=== PATIENT | female | born 1975 | race Caucasian/White ===

== ENCOUNTER 2023-03-01 17:05 | Emergency (ER) | payer OTHER, SELFPAY ==
[2023-03-01] VITALS (9 sets, daily range): BP systolic 138; BP diastolic 92; PULSE 86–98; RESP 13–20; TEMP 36.8; O2SAT 96; BMI 43.6
--- NOTE | 2023-03-01 17:15 | ECG_ITS ---
The [facility] Test Date: 2023-03-01 Pat Name: MARIO ALBERTO RODRIGUEZ Department: Room: - Gender: Female [employer] Driver: : 1975 Requested By: [id number] Order Number: [id number] Reading MD: ARY PULIDO Measurements Intervals [place] Rate: 86 P: 33 [place]: 156 QRS: 76 QRSD: 84 T: 71 QT: 390 QTc: 434 Interpretive Statements 1100 Sinus rhythm 9110 normal ECG No previous ECG available for comparison Electronically Signed On 03-02-2023 7:09:48 EDT by ARY PULIDO
--- NOTE | 2023-03-01 17:15 | XR_ITS ---
The [place] [id number] Patient Name: MARIO ALBERTO RODRIGUEZ MRN: [id number] date: 1975 Sex: F Assigned Patient Location: ER Current Patient Location: ER Accession/Order Number: [id number] Exam Date: 03/01/2023 17:50 Report Date: 03/01/2023 18:31 At the request of: KING BREWER Procedure: XR ribs RT min 3V w CXR1V Ribs EXAM: XR ribs RT min 3V w CXR1V HISTORY: pain COMPARISON: None. TECHNIQUE: Chest, single view. Right rib series with 7 images obtained. FINDINGS: Lungs/pleura: No consolidation, effusion, or pneumothorax. Bones: No acute abnormality identified. XR/XR ribs RT min 3V w CXR1V IMPRESSION: No acute displaced rib fracture. No acute process. Electronically authenticated by: JESÚS MOORE Date: 03/01/2023 18:31
--- NOTE | 2023-03-01 17:15 | US_ITS ---
The [address] [address] Patient Name: MARIO ALBERTO RODRIGUEZ MRN: [id number] date: 1975 Sex: F Assigned Patient Location: ER Current Patient Location: .MAIN Accession/Order Number: [id number] Exam Date: 03/01/2023 17:50 Report Date: 03/01/2023 19:21 At the request of: KING BREWER Procedure: US right upper quadrant EXAM: US right upper quadrant HISTORY: ruq pain COMPARISON: CTA chest 09/10/2022. TECHNIQUE: Transabdominal ultrasound was performed of the right upper quadrant. FINDINGS: The liver is diffusely increased in echogenicity consistent with fatty infiltration. This somewhat limits visualization. The liver is also enlarged with the right lobe measuring 20 cm in length. No definite focal lesions are seen. There is normal hepatopetal Doppler flow within the main portal vein. The pancreas is poorly visualized due to bowel gas. The common bile duct is normal diameter at 4.1 mm. The gallbladder is contracted with no definite gallstones visualized. The patient reportedly ate 2 hours prior to the study. There is no pericholecystic fluid. The sonographic Lauren sign is negative. The right kidney measures 10.4 x 5.3 x 4.9 cm and appears unremarkable. US/US right upper quadrant IMPRESSION: 1. The gallbladder is contracted, likely due to nonfasting state. No definite evidence of cholelithiasis or acute cholecystitis however is identified. 2. Fatty liver and hepatomegaly. Electronically authenticated by: TIMOTEO VAZQUEZ Date: 03/01/2023 19:21
--- NOTE | 2023-03-01 17:24 | ED.GENADUL1 ---
HPI - General Adult General Chief complaint: Chest Pain Stated complaint: Right Flank Pain Time Seen by Provider: 03/01/23 17:15 Source: patient Mode of arrival: walk-in Limitations: no limitations History of Present Illness HPI narrative: 47-year-old female who does smoke presents for right upper quadrant pain for the past 2 days. She states that she has a smoker's cough and last time this happened, she broke her rib from pleurisy. She states that she has been coughing more than normal and has not been sick. She has a history of drinking frequent alcohol on the weekends, but has not done this in the past month. Denies radiation of pain. Pain worse with moving around and coughing. Denies fever, back pain, dysuria, hematuria, urinary frequency, n/v/d, SOB or CP Related Data Previous Rx's Medication Instructions Recorded tizanidine 4 mg tablet (Zanaflex) 4 mg PO TID PRN muscle spasticity 03/01/23 5 days #15 tabs Allergies Allergy/AdvReac Type Severity Reaction Status Date / Time cephalexin [From Keflex] AdvReac Severe Diarrhea Verified 03/01/23 17:09 nalbuphine [From Nubain] AdvReac Severe NAUSEA Verified 03/01/23 17:09 AND VOMITING Review of Systems ROS Status of ROS 10 or more systems reviewed and unremarkable except as noted in history and below [facility] Social History Smoking status: Heavy tobacco smoker Exam Narrative Exam Narrative: General: alert, no distress, talking in full an complete sentences skin: warm, dry, intact head: normocephalic, atraumatic eyes: EOMI nose: nares patent neck: supple, trachea midline cardiac: +S1/S1. no murmur respiratory: lungs CTA, non-labored, no wheezing, no retractions abdomen: soft, ruq tenderness, no guarding, no rigidity, positive murphys sign, no peritonal signs, normal BS extremities: FROM x 4, strength +5/5 neuro: A&Ox3 psych: appropriate mood and affect, cooperative Constitutional Vital Signs, click to edit/add: Last Vital Signs Temp 98.3 F 03/01/23 17:09 Pulse 92 H 03/01/23 18:30 Resp 18 03/01/23 18:30 BP 138/92 H 03/01/23 17:09 Pulse Ox 96 03/01/23 17:09 O2 Del Method Room Air 03/01/23 17:09 Course Vital Signs Vital signs: Vital Signs Temperature 98.3 F 03/01/23 17:09 Pulse Rate 98 H 03/01/23 17:09 Respiratory Rate 20 03/01/23 17:09 Blood Pressure 138/92 H 03/01/23 17:09 Pulse Oximetry 96 03/01/23 17:09 Oxygen Delivery Method Room Air 03/01/23 17:09 Temperature 98.3 F 03/01/23 17:09 Pulse Rate 92 H 03/01/23 18:30 Respiratory Rate 18 03/01/23 18:30 Blood Pressure 138/92 H 03/01/23 17:09 Pulse Oximetry 96 03/01/23 17:09 Oxygen Delivery Method Room Air 03/01/23 17:09 Medical Decision Making MDM Narrative Medical decision making narrative: EKG sinus rhythm at a rate of 86. Medicated with Toradol. No significant lab normalities. No acute findings on final read of x-ray. Final read of ultrasound gallbladder no acute findings. This does show fatty liver and hepatomegaly. No acute findings on final read of CT abdomen pelvis. Likely muscular and she can use [id number] medications and follow-up with family doctor. She is given a dose of Norflex here and then a prescription for Zanaflex. Afebrile, not tachypneic, not tachycardic, tolerating p.o., not hypoxic, non toxic appearing and ambulating at baseline and hemodynamically stable to be d/c. answered all questions. educated on SE of meds. pt in agreement with tx. educated when to return to ER. Lab Data Lab results reviewed: Yes I reviewed the patient's lab results Labs: Lab Results 03/01/23 Range/Units 17:30 WBC 10.9 (4.0-11.0) 10^3/uL RBC 4.22 (4.20-5.40) 10^6/uL Hgb 12.6 (12.0-16.0) g/dL Hct 39.4 (36.0-48.0) % MCV 93.4 (81.0-99.0) fL MCH 29.9 (26.7-34.0) pg MCHC 32.0 (29.9-35.2) g/dL RDW 14.9 (11.0-15.0) % Plt Count 326 (150-450) 10^3/uL MPV 9.1 L (9.5-13.5) fL Neut % (Auto) 56.6 (43.0-75.0) % Lymph % (Auto) 33.9 (20.5-60.0) % Karnes % (Auto) 6.6 (1.7-12.0) % Eos % (Auto) 1.8 (0.9-7.0) % Baso % (Auto) 0.5 (0.2-2.0) % Neut # (Auto) 6.2 (1.4-6.5) 10^3/uL Lymph # (Auto) 3.7 (1.2-3.8) 10^3/uL Karnes # (Auto) 0.7 (0.3-0.8) 10^3/uL Eos # (Auto) 0.2 (0.0-0.7) 10^3/uL Baso # (Auto) 0.1 (0.0-0.1) 10^3/uL Abs Immat Gran (auto) 0.07 H (0.00-0.03) 10^3/uL Imm/Tot Granulo (auto) 0.6 H (0.0-0.5) % PT 9.4 (9.0-11.6) sec INR <0.93 Sodium 140 (136-145) mmol/L Potassium 3.9 (3.5-5.1) mmol/L Chloride 102 (98-107) mmol/L Carbon Dioxide 31.2 (21.0-32.0) mmol/L Anion Gap 10.7 BUN 16.0 (7.0-18.0) mg/dL Creatinine 0.94 (0.55-1.02) mg/dL Est GFR ( Amer) >60 (>=60) Est GFR (Non-Af Amer) >60 (>=60) BUN/Creatinine Ratio 17.0 Glucose 101 (74-106) mg/dL Calcium 9.3 (8.5-10.1) mg/dL Magnesium 2.1 (1.8-2.4) mg/dL Total Bilirubin 0.1 L (0.2-1.0) mg/dL Direct Bilirubin <0.1 (0.0-0.2) mg/dL AST 18 (15-37) U/L ALT 34 (14-59) U/L Alkaline Phosphatase 137 H (46-116) U/L Troponin I High Sens 8.2 (4.0-51.3) pg/mL NT-Pro-B Natriuret Pep 111.0 (<=450.0) pg/mL Total Protein 6.8 (6.4-8.2) g/dL Albumin 3.3 L (3.4-5.0) g/dL Globulin 3.5 g/dL Albumin/Globulin Ratio 0.9 Lipase 34.0 (16.0-77.0) U/L Imaging Data CT scan - abdomen: Attestation: I personally reviewed and interpreted this imaging study as follows: Radiologist's impression: CT/CT abdomen pelvis w con Impression: 1. No evidence of acute abdominal or pelvic process. 2. Diffuse fatty infiltration of the liver. 3. 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 No acute rib fractures are seen Discharge Plan Discharge Chief Complaint: Chest Pain Clinical Impression: Abdominal pain Qualifiers: Abdominal location: right upper quadrant Qualified Code(s): R10.11 - Right upper quadrant pain Abdominal muscle strain Qualifiers: Encounter type: initial encounter Qualified Code(s): S39.011A - Strain of muscle, fascia and tendon of abdomen, initial encounter Patient Disposition: Home, Self-Care Time of Disposition Decision: 20:16 Condition: Good Mode of Transportation: Private Vehicle Prescriptions / Home Meds: New tizanidine [Zanaflex] 4 mg tablet 4 mg PO TID PRN (Reason: muscle spasticity) 5 Days Qty: 15 0RF Instructions: Muscle Strain (ED), Abdominal Pain (ED) Stand Alone Forms: Portal Instructions Referrals: Physician,Non-Staff, MD [Primary Care Provider] - 1 week
[2023-03-01] MEDS: KETOROLAC TROMETHAMINE 30 MG/ML VIAL 15 MG IVP (17:33)
[2023-03-01 17:42] LABS: Basophils Absolute Auto 0.1 10^3/uL (0.0-0.1); Basophils Percent Auto 0.5 % (0.2-2.0); Eosinophils Absolute Auto 0.2 10^3/uL (0.0-0.7); Eosinophils Percent Auto 1.8 % (0.9-7.0); Hematocrit 39.4 % (36.0-48.0); Hemoglobin 12.6 g/dL (12.0-16.0); Immature Granulocytes Abs Auto 0.07 10^3/uL (0.00-0.03); Immature Granulocytes Pct Auto 0.6 % (0.0-0.5); Lymphocytes Absolute Auto 3.7 10^3/uL (1.2-3.8); Lymphocytes Percent Auto 33.9 % (20.5-60.0); Mean Corpuscular Hemoglobin 29.9 pg (26.7-34.0); Mean Corpuscular Volume 93.4 fL (81.0-99.0); Mean Platelet Volume 9.1 fL (9.5-13.5); Monocytes Absolute Auto 0.7 10^3/uL (0.3-0.8); Monocytes Percent Auto 6.6 % (1.7-12.0); Neutrophils Absolute Auto 6.2 10^3/uL (1.4-6.5); Neutrophils Percent Auto 56.6 % (43.0-75.0); Platelet Count 326 10^3/uL (150-450); Red Blood Count 4.22 10^6/uL (4.20-5.40); Red Cell Distribution Width 14.9 % (11.0-15.0); White Blood Count 10.9 10^3/uL (4.0-11.0)
[2023-03-01 17:57] LABS: Prothrombin Time 9.4 sec (9.0-11.6)
[2023-03-01 17:58] LABS: Alanine Aminotransferase 34 U/L (14-59); Albumin Globulin Ratio 0.9; Albumin Level 3.3 g/dL (3.4-5.0); Alkaline Phosphatase 137 U/L (46-116); Aspartate Amino Transferase 18 U/L (15-37); Bilirubin Direct <0.1 mg/dL (0.0-0.2); Bilirubin Total 0.1 mg/dL (0.2-1.0); Globulin 3.5 g/dL; Magnesium 2.1 mg/dL (1.8-2.4); Total Protein 6.8 g/dL (6.4-8.2)
[2023-03-01 18:01] LABS: INR <0.93
[2023-03-01 18:08] LABS: Anion Gap 10.7; Calcium 9.3 mg/dL (8.5-10.1); Carbon Dioxide 31.2 mmol/L (21.0-32.0); Chloride 102 mmol/L (98-107); Estimated GFR (African America >60 (>=60); Estimated GFR (Non-African Ame >60 (>=60); Glucose 101 mg/dL (74-106); Potassium 3.9 mmol/L (3.5-5.1); Sodium 140 mmol/L (136-145); Troponin I High Sensitivity 8.2 pg/mL (4.0-51.3)
--- NOTE | 2023-03-01 18:41 | CT_ITS ---
The [address] [address] Patient Name: MARIO ALBERTO RODRIGUEZ MRN: [id number] date: 1975 Sex: F Assigned Patient Location: ER Current Patient Location: Accession/Order Number: [id number] Exam Date: 03/01/2023 18:55 Report Date: 03/01/2023 20:01 At the request of: KING BREWER Procedure: CT abdomen pelvis w con Indication: Right upper quadrant pain Comparison: CT exam of the chest of 09/10/2022 was reviewed. Procedure: Axial images were made from the diaphragms through the symphysis pubis. No oral contrast was given prior to scanning. 100 mL Omnipaque 300 Intravenous contrast was given. Dose reduction techniques were achieved by using automated exposure control and/or adjustment of mA and/or kV according to patient size and/or use of iterative reconstruction technique. Findings: Liver/Biliary System: Diffuse fatty infiltration of the liver. No liver masses are seen. No intra or extrahepatic biliary dilatation. No gallstones or cholecystitis. Pancreas/Spleen: No evidence of acute pancreatitis. Pancreatic duct is not dilated. No pancreatic lesions are seen. No splenomegaly or splenic lesions. Kidneys/Adrenals: Normal symmetrical nephrograms. No renal masses. No renal or ureteral stones are seen. No hydronephrosis or hydroureter bilaterally. 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 Aorta/Vessels: No evidence of aortic aneurysm. Patent IVC, renal veins, hepatic veins and portal venous system. Bowel/Fluid/Nodes: No bowel dilatation or bowel wall thickening. No evidence of bowel obstruction. Normal appendix. No ascites or fluid collections. No adenopathy. Lung bases: Clear. Other findings: No aggressive osseous lesions are seen. 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 No acute rib fractures are seen. Pelvis: No pelvic masses or adenopathy. No free fluid seen in the pelvis. Status post hysterectomy. Unremarkable bladder. Other Findings: No aggressive osseous lesions are seen. CT/CT abdomen pelvis w con Impression: 1. No evidence of acute abdominal or pelvic process. 2. Diffuse fatty infiltration of the liver. 3. 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 No acute rib fractures are seen Electronically authenticated by: NICOLÁS FAIRCHILD Date: 03/01/2023 20:01
[2023-03-01] MEDS: ORPHENADRINE 60 MG/ 2 ML VIAL IV (20:33)
== END 2023-03-01 20:47 | disposition home or self-care (01) ==
PROVIDERS: Physician Assistant; Emergency Provider Emergency Medicine
DX: R10.11 Right upper quadrant pain (principal); S39.011A Strain of muscle, fascia and tendon of abdomen, initial encounter; F17.210 Nicotine dependence, cigarettes, uncomplicated; X50.9XXA Other and unspecified overexertion or strenuous movements or postures, initial encounter
CPT/HCPCS: 36415; 71101; 74177; 76705; 80048; 80076; 81001; 83690; 83735; 83880; 84484; 85025; 85610; 93005; 96374; 96375; 99285; Q9967